=== PATIENT | male | born 1990 | race Caucasian/White ===

== ENCOUNTER 2017-12-05 05:21 | Emergency (ER) | payer SELFPAY ==
[~2017-12-05] VITALS: Ht 175.3 cm; Wt 74.8 kg
--- NOTE | 2017-12-05 05:41 | Emergency Room Report ---
History of Present Illness General Chief Complaint: Abdominal Pain Source: Patient Present Illness HPI Is a 26-year-old male with no past medical history. He presents with chief complaint abdominal pain started around midnight. Small amount of diarrhea. [place] nauseous but no vomiting. Pain is sharp and crampy. Episodic in nature. Comes in waves. At most severe around 9 out of 10. Never had this problem before. History of appendicitis when he was younger. Allergies: Coded Allergies: No Known Allergies (Unverified , 12/05/17) Patient History Past Medical History: see triage record, old chart reviewed Past Surgical History: appy Pertinent Family History: none Social History: Denies: smoking Immunizations: other Reviewed Nursing Documentation: PMH: Agreed; PSxH: Agreed Nursing Documentation-PMH Past Medical History: No History, Except For Review of Systems Eye: Denies: eye pain, blurred vision ENT: Denies: ear pain, nose congestion, throat swelling Respiratory: Denies: cough, shortness of breath Cardiovascular: Denies: chest pain, palpitations Gastrointestinal: Reports: abdominal pain, diarrhea; Denies: nausea, vomiting Musculoskeletal: Denies: back pain, joint pain Skin: Denies: rash Neurological: Denies: headache, numbness Endocrine: Denies: increased thirst, increased urine Hematologic/Lymphatic: Denies: easy bruising All Other Systems: negative except mentioned in HPI Physical Exam Vital Signs Date Time Temp Pulse Resp B/P (MAP) Pulse Ox O2 Delivery O2 Flow Rate FiO2 12/05/17 05:24 97.8 76 16 136/84 96 Room Air 97.9 vitals normal Sp02 EP Interpretation: reviewed, normal General Appearance: well appearing, no apparent distress, alert Head: normocephalic, atraumatic Eyes: bilateral eye PERRL, bilateral eye EOMI ENT: hearing grossly normal, normal pharynx Neck: full range of motion, supple, no meningismus Respiratory: chest non-tender, lungs clear, normal breath sounds Cardiovascular #1: regular rate, rhythm, no murmur Gastrointestinal: normal bowel sounds, no mass, no organomegaly, no bruit, non- distended, tenderness - right lower quadrant Musculoskeletal: back normal, gait/station normal, normal range of motion Psychiatric: mood/affect normal Skin: warm/dry Medical Decision Making Diagnostic Impression: Primary Impression: Abdominal pain Qualified Codes: R10.84 - Generalized abdominal pain ER Course Patient presents with generalized abdominal pain and small medical diarrhea. No evidence of obstruction. Labs unremarkable. No evidence of acute abdomen or infectious diarrhea. Most likely beginning of a gastroenteritis this been problem in a community the last couple weeks. We'll discharge home. Lab Results Impression labs unremarkable CT/MRI/US Diagnostic Results CT/MRI/US Diagnostic Results : Imaging Test Ordered: CT abdomen and pelvis Impression negative per radiologist Last Vital Signs Date Time Temp Pulse Resp B/P (MAP) Pulse Ox O2 Delivery O2 Flow Rate FiO2 12/05/17 05:24 97.8 76 16 136/84 96 Room Air 97.9 Status: improved Disposition: HOME, SELF-CARE Condition: Stable Scripts Ibuprofen* (MOTRIN*) 600 Mg Tablet 600 MG ORAL THREE TIMES A DAY, #30 TAB 0 Refills Prov: CARMEN SHABAZZ M.D. 12/05/17 Patient Instructions: Abdominal Pain, Adult Additional Instructions: Follow-up with your Dr. in 2-3 days if not better. Return if symptom worsen. Increase fluids. Advance diet as tolerated. CARMEN SHABAZZ M.D. December 05, 2017 05:41
[2017-12-05] MEDS ORDERED: Ketorolac 30mg Inj IV ONE (05:45)
[2017-12-05 06:11] LABS: BASOPHILS % (AUTO) 0.5 % (0.0-2.0); EOSINOPHILS % (AUTO) 0.3 % (0.0-3.0); HEMATOCRIT 46.8 % (42.0-52.0); HEMOGLOBIN 16.4 G/DL (14.2-18.0); LYMPHOCYTES % (AUTO) 14.1 % (20.0-45.0); MEAN CORPUSCULAR VOLUME 83 FL (80-99); MONOCYTES % (AUTO) 3.8 % (1.0-10.0); NEUTROPHILS % (AUTO) 81.3 % (45.0-75.0); PLATELET COUNT 218 K/UL (150-450); RED BLOOD COUNT 5.67 M/UL (4.70-6.10); RED CELL DISTRIBUTION WIDTH 10.4 % (11.6-14.8); WHITE BLOOD COUNT 10.3 K/UL (4.8-10.8)
[2017-12-05 06:21] LABS: ANION GAP 11 mmol/L (5-15); BLOOD UREA NITROGEN 19 mg/dL (7-18); CALCIUM 9.5 MG/DL (8.5-10.1); CARBON DIOXIDE 25 MMOL/L (21-32); CHLORIDE 103 MMOL/L (98-107); CREATININE 1.1 MG/DL (0.55-1.30); POTASSIUM 3.7 MMOL/L (3.5-5.1); SODIUM 139 MMOL/L (136-145)
[2017-12-05 06:25] LABS: ALANINE AMINOTRANSFERASE 50 U/L (12-78); ALBUMIN 4.9 G/DL (3.4-5.0); ALBUMIN/GLOBULIN RATIO 1.4 (1.0-2.7); ALKALINE PHOSPHATASE 83 U/L (46-116); ASPARTATE AMINO TRANSFERASE 40 U/L (15-37); BILIRUBIN,TOTAL 0.9 MG/DL (0.2-1.0)
[2017-12-05] MEDS ORDERED: IBUPROFEN600 MG ORAL (06:29)
[2017-12-05] MEDS ORDERED: Morphine Sulfate 4mg/ml Inj IVP ONE (06:30)
[2017-12-05 06:43] VITALS: BP 139/75
--- NOTE | 2017-12-05 06:50 | Diagnostic Imaging Report ---
EXAM: CT Abdomen and Pelvis Without Intravenous Contrast. CLINICAL HISTORY: Abdominal pain. TECHNIQUE: Axial computed tomography images of the abdomen and pelvis without intravenous contrast. CTDI is 13.2 mGy and DLP is 618 mGy-cm. One or more of the following dose reduction techniques were used: automated exposure control, adjustment of the mA and/or kV according to patient size, use of iterative reconstruction technique. COMPARISON: No relevant prior studies available. FINDINGS: Lower thorax: No acute findings. ABDOMEN: Liver: Unremarkable. Gallbladder and bile ducts: Unremarkable. No calcified stones. No ductal dilation. Pancreas: Unremarkable. No ductal dilation. Spleen: Unremarkable. No splenomegaly. Adrenals: Unremarkable. No mass. Kidneys and ureters: Unremarkable. No obstructing stones. No hydronephrosis. PELVIS: Bladder: Unremarkable. No stones. Reproductive: Unremarkable as visualized. Appendix: No findings to suggest acute appendicitis. ABDOMEN + PELVIS: Stomach and bowel: Dilated, fluid-filled loops of small bowel with fecalization of small bowel contents and a point of transition within the distal or terminal ileum. Findings are most consistent with a low-grade small bowel obstruction at this site. There is mild associated mesenteric edema. No definite bowel wall thickening though evaluation is limited by absence of enteric contrast. Peritoneum: Unremarkable. No significant loculated fluid collection. No free air. Lymph nodes: Unremarkable. No enlarged lymph nodes. Vasculature: Unremarkable. No aortic aneurysm. Bones: No acute fracture. IMPRESSION: Low grade distal small bowel obstruction, with point of transition within the distal or terminal ileum. Etiology of obstruction is unclear though it may be due to focal stricture or adhesion. No extrinsic mass effect or mass lesion is seen. Please correlate if patient has known inflammatory bowel disease such as Crohn's, in which case it would be more likely to be a stricture at this site. [employer] 12/05/17 06:55 Verify Receipt Verified receipt with SHAYY Duke in ER for Bill GARNICA on 12/05 06:55 (-07:00)
[2017-12-05] MEDS ORDERED: NKM (07:00)
--- NOTE | 2017-12-05 08:11 | Emergency Room Report ---
Physical Exam Vital Signs Date Time Temp Pulse Resp B/P (MAP) Pulse Ox O2 Delivery O2 Flow Rate FiO2 12/05/17 05:24 97.8 76 16 136/84 96 Room Air 97.9 Medical Decision Making Diagnostic Impression: Primary Impression: Abdominal pain Qualified Codes: R10.84 - Generalized abdominal pain Additional Impression: Bowel obstruction Qualified Codes: K56.51 - Intestinal adhesions [bands], with partial obstruction ER Course Hospital Course 26-year-old male presents to ED with abdominal pain Clinical course patient initially seen and evaluated by Dr Terrazas; please see his note for full history and physical Labs - no leukocytosis, Hb/Hct stable. electrolytes ok. CT abdomen and pelvis - SBO with transition point in RLQ Patient complains of nausea but no vomiting. States he has not had a bowel movement or flatus since pain started. I discussed findings with patient. I recommend admission. Patient discussed with his family states he would prefer to be discharged and will return if pain worsens. Understands the risks of leaving. Patient has competency to make his own decisions. Signed AMA form. I feel this is a highly complex case requiring extensive working including EKG/ Rhythm strip, Xray/CT/US, Blood/urine lab work, repeat exams while in ED, and administration of strong opiates/narcotics for pain control, admission to hospital or close patient follow up. Diagnosis - abdominal pain, bowel obstruction patient leaves AMA Labs Test 12/05/17 05:30 12/05/17 05:35 White Blood Count 10.3 K/UL (4.8-10.8) Red Blood Count 5.67 M/UL (4.70-6.10) Hemoglobin 16.4 G/DL (14.2-18.0) Hematocrit 46.8 % (42.0-52.0) Mean Corpuscular Volume 83 FL (80-99) Mean Corpuscular Hemoglobin 29.0 PG (27.0-31.0) Mean Corpuscular Hemoglobin Concent 35.1 G/DL (32.0-36.0) Red Cell Distribution Width 10.4 % (11.6-14.8) Platelet Count 218 K/UL (150-450) Mean Platelet Volume 8.0 FL (6.5-10.1) Neutrophils (%) (Auto) 81.3 % (45.0-75.0) Lymphocytes (%) (Auto) 14.1 % (20.0-45.0) Monocytes (%) (Auto) 3.8 % (1.0-10.0) Eosinophils (%) (Auto) 0.3 % (0.0-3.0) Basophils (%) (Auto) 0.5 % (0.0-2.0) Sodium Level 139 MMOL/L (136-145) Potassium Level 3.7 MMOL/L (3.5-5.1) Chloride Level 103 MMOL/L (98-107) Carbon Dioxide Level 25 MMOL/L (21-32) Anion Gap 11 mmol/L (5-15) Blood Urea Nitrogen 19 mg/dL (7-18) Creatinine 1.1 MG/DL (0.55-1.30) Estimat Glomerular Filtration Rate > 60 mL/min (>60) Glucose Level 95 MG/DL (74-106) Calcium Level 9.5 MG/DL (8.5-10.1) Total Bilirubin 0.9 MG/DL (0.2-1.0) Aspartate Amino Transf (AST/SGOT) 40 U/L (15-37) Alanine Aminotransferase (ALT/SGPT) 50 U/L (12-78) Alkaline Phosphatase 83 U/L (46-116) Total Protein 8.4 G/DL (6.4-8.2) Albumin 4.9 G/DL (3.4-5.0) Globulin 3.5 g/dL Albumin/Globulin Ratio 1.4 (1.0-2.7) Lipase 124 U/L (73-393) CT/MRI/US Diagnostic Results CT/MRI/US Diagnostic Results : Imaging Test Ordered: CT A/P Impression Low grade distal small bowel obstruction, with point of transition within the distal or terminal ileum. Etiology of obstruction is unclear though it may be due to focal stricture or adhesion. No extrinsic mass effect or mass lesion is seen. Please correlate if patient has known inflammatory bowel disease such as Crohn's, in which case it would be more likely to be a stricture at this site. Last Vital Signs Date Time Temp Pulse Resp B/P (MAP) Pulse Ox O2 Delivery O2 Flow Rate FiO2 12/05/17 06:59 97.0 12/05/17 06:43 97 14 139/75 99 Room Air Status: unchanged Disposition: AGAINST MEDICAL ADVICE Condition: Stable Scripts Ibuprofen* (MOTRIN*) 600 Mg Tablet 600 MG ORAL THREE TIMES A DAY, #30 TAB 0 Refills Prov: CARMEN TERRAZAS M.D. 12/05/17 Referrals: NOT CHOSEN [facility]/,REFERRING (PCP) Patient Instructions: Abdominal Pain, Adult Additional Instructions: Follow-up with your Dr. in 2-3 days if not better. Return if symptom worsen. Increase fluids. Advance diet as tolerated. Saul Khan MD December 05, 2017 08:11
[2017-12-05 08:15] VITALS: BP 141/71
== END 2017-12-05 08:15 | disposition left against medical advice (07) ==
LOC: EMR 05:43
DX: R10.84 Generalized abdominal pain (principal); K56.51 Intestinal adhesions [bands], with partial obstruction
CPT/HCPCS: 36415; 74176; 80053; 83690; 85025; 96360; 96374; 96375; 99284; J1885; J2270; J2405

== ENCOUNTER 2017-12-05 19:40 | Inpatient (IN) | payer SELFPAY ==
[~2017-12-05] VITALS: Ht 175.3 cm; Wt 74.8 kg
[~2017-12-05 19:40] MED LIST: IBUPROFEN600 MG ORAL; NKM
--- NOTE | 2017-12-05 19:56 | Emergency Room Report ---
History of Present Illness General Chief Complaint: Abdominal Pain Source: Patient, Medical Record Present Illness HPI The patient presents after signing out AGAINST MEDICAL ADVICE this morning. He was seen with right lower quadrant pain that began about 1 AM. It has been fairly constant but has periods where it gets significantly worse. At times it' s 2-3/10 but then gets up to eat to 9/10. When he initially presented he has a scant amount of yellow diarrhea. He's moved his bowels a couple times today but is not passing gas. He's vomited one time this afternoon which was the Pedialyte that he tried to keep down. Denies any fever fevers or chills. He is status post appendectomy and this feels similar to that. The evaluation this morning had essentially normal labs however a CAT scan ( which was initially read as negative) but was reread with sigmoid obstruction suggestive of possible inflammatory bowel disease or adhesion. This was discussed with the patient. He consulted with his father who is a chiropractor and advised him to sign out AMA. No fevers, chest pain, cough, rashes. There is some anxiety with the pain. No joint pain or headache. No dizziness when standing. No recent alcohol ingestion. 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 Nursing Documentation: PMH: Agreed; PSxH: Agreed Review of Systems All Other Systems: negative except mentioned in HPI Physical Exam Vital Signs Date Time Temp Pulse Resp B/P (MAP) Pulse Ox O2 Delivery O2 Flow Rate FiO2 12/05/17 19:47 97.8 73 20 146/98 98 Room Air 97.9 Sp02 EP Interpretation: reviewed, normal General Appearance: well appearing, alert, GCS 15, non-toxic, mild distress Head: normocephalic Eyes: bilateral eye normal inspection, bilateral eye PERRL ENT: moist mucus membranes Neck: supple Respiratory: lungs clear, normal breath sounds Cardiovascular #1: regular rate, rhythm Cardiovascular #2: 2+ radial (R) Gastrointestinal: normal inspection, normal bowel sounds, no mass, non- distended, no rebound, guarding - RLQ, tenderness Musculoskeletal: back normal, gait/station normal, normal range of motion Neurologic: alert, oriented x3, grossly normal Psychiatric: anxious Skin: normal inspection, warm/dry Medical Decision Making Diagnostic Impression: Primary Impression: Small bowel obstruction ER Course Patient has continued abdominal pain after signing out AGAINST MEDICAL ADVICE with a CAT scan suggestive of bowel obstruction. Differential includes bowel obstruction, inflammatory bowel disease amongst others. Needs reevaluation with labs, abdominal film. Patient will be treated with IV hydration and analgesia. Concern is that the obstruction is persistent and the patient is still vomiting. Most likely patient needs to be admitted to the hospital. Labs with min leukocytosis. Abd film with SBO. Improved with analgesia, still with some pain. No rebound. Min guarding. Patient discussed with Dr. Stephens and Dr. Boyer. Admit med, Dr. Boyer. (NG tube ordered by Dr. Terrazas. Poorly tolerated by patient.) Laboratory Tests Test 12/05/17 20:00 12/05/17 20:07 White Blood Count 10.6 K/UL (4.8-10.8) Red Blood Count 6.23 M/UL (4.70-6.10) H Hemoglobin 17.7 G/DL (14.2-18.0) Hematocrit 50.5 % (42.0-52.0) Mean Corpuscular Volume 81 FL (80-99) Mean Corpuscular Hemoglobin 28.5 PG (27.0-31.0) Mean Corpuscular Hemoglobin Concent 35.1 G/DL (32.0-36.0) Red Cell Distribution Width 10.3 % (11.6-14.8) L Platelet Count 216 K/UL (150-450) Mean Platelet Volume 7.9 FL (6.5-10.1) Neutrophils (%) (Auto) % (45.0-75.0) Lymphocytes (%) (Auto) % (20.0-45.0) Monocytes (%) (Auto) % (1.0-10.0) Eosinophils (%) (Auto) % (0.0-3.0) Basophils (%) (Auto) % (0.0-2.0) Differential Total Cells Counted 100 Neutrophils % (Manual) 88 % (45-75) H Lymphocytes % (Manual) 9 % (20-45) L Monocytes % (Manual) 1 % (1-10) Eosinophils % (Manual) 0 % (0-3) Basophils % (Manual) 0 % (0-2) Band Neutrophils 2 % (0-8) Platelet Estimate Adequate Platelet Morphology Normal Red Blood Cell Morphology Normal Prothrombin Time 11.4 SEC (9.30-11.50) Prothrombin Time INR 1.1 (0.9-1.1) PTT 29 SEC (23-33) Sodium Level 139 MMOL/L (136-145) Potassium Level 4.0 MMOL/L (3.5-5.1) Chloride Level 103 MMOL/L (98-107) Carbon Dioxide Level 25 MMOL/L (21-32) Anion Gap 11 mmol/L (5-15) Blood Urea Nitrogen 17 mg/dL (7-18) Creatinine 1.2 MG/DL (0.55-1.30) Estimate Glomerular Filtration Rate > 60 mL/min (>60) Glucose Level 102 MG/DL (74-106) Calcium Level 9.6 MG/DL (8.5-10.1) Total Bilirubin 1.3 MG/DL (0.2-1.0) H Direct Bilirubin 0.3 MG/DL (0.0-0.3) Aspartate Amino Transferase (AST) 34 U/L (15-37) Alanine Aminotransferase (ALT) 47 U/L (12-78) Alkaline Phosphatase 68 U/L (46-116) Total Creatine Kinase 453 U/L (26-308) H Total Protein 7.9 G/DL (6.4-8.2) Albumin 4.6 G/DL (3.4-5.0) Globulin 3.3 g/dL Albumin/Globulin Ratio 1.4 (1.0-2.7) Lipase 111 U/L (73-393) Urine Color Kina Urine Appearance Slightly cloudy Urine pH 6.5 (4.5-8.0) Urine Specific [place] 1.015 (1.005-1.035) Urine Protein 1+ (NEGATIVE) H Urine Glucose (UA) Negative (NEGATIVE) Urine Ketones 4+ (NEGATIVE) H Urine Occult Blood 1+ (NEGATIVE) H Urine Nitrite Negative (NEGATIVE) Urine Bilirubin Negative (NEGATIVE) Urine Ictotest Negative Urine Urobilinogen Normal MG/DL (0.0-1.0) Urine Leukocyte Esterase 1+ (NEGATIVE) H Urine RBC 0 /HPF (0 - 0) Urine WBC 5-10 /HPF (0 - 0) H Urine Squamous Epithelial Cells Occasional /LPF Urine Bacteria Few /HPF (NONE) Urine Mucus Few /LPF (NONE/OCC) H Other X-Ray Diagnostic Results Other X-Ray Diagnostic Results : X-Ray ordered: abd # of Views/Limited Vs Complete: 1 View Indication: Pain EP Interpretation: Yes Interpretation: other - suggestive of SBO, no gas in rectum, no masses Impression: Other Electronically Signed by: Benji Canales MD Last Vital Signs Date Time Temp Pulse Resp B/P (MAP) Pulse Ox O2 Delivery O2 Flow Rate FiO2 12/05/17 23:17 97.9 20 146/98 98 Room Air 97.9 12/05/17 19:47 73 Status: improved Disposition: ADMITTED INPATIENT Condition: Serious Benji Canales M.D. December 05, 2017 19:56
[2017-12-05] MEDS ORDERED: Morphine Sulfate 4mg/ml Inj IVP ONE ×2 (20:15→22:30)
[2017-12-05 20:24] LABS: HEMATOCRIT 50.5 % (42.0-52.0); HEMOGLOBIN 17.7 G/DL (14.2-18.0); MEAN CORPUSCULAR VOLUME 81 FL (80-99); PLATELET COUNT 216 K/UL (150-450); RED BLOOD COUNT 6.23 M/UL (4.70-6.10); RED CELL DISTRIBUTION WIDTH 10.3 % (11.6-14.8); WHITE BLOOD COUNT 10.6 K/UL (4.8-10.8)
[2017-12-05 20:29] LABS: APPEARANCE,URINE SLIGHTLY CLOUDY; BILIRUBIN, URINE NEGATIVE (NEGATIVE); COLOR,URINE AMBER; GLUCOSE, URINE (UA) NEGATIVE (NEGATIVE); KETONES,URINE 4+ (NEGATIVE); LEUKOCYTE ESTERASE ,URINE 1+ (NEGATIVE); NITRITE,URINE NEGATIVE (NEGATIVE); PH,URINE 6.5 (4.5-8.0); PROTEIN,URINE 1+ (NEGATIVE); UROBILINOGEN,URINE NORMAL MG/DL (0.0-1.0)
[2017-12-05 20:36] LABS: ANION GAP 11 mmol/L (5-15); BLOOD UREA NITROGEN 17 mg/dL (7-18); CALCIUM 9.6 MG/DL (8.5-10.1); CARBON DIOXIDE 25 MMOL/L (21-32); CHLORIDE 103 MMOL/L (98-107); CREATININE 1.2 MG/DL (0.55-1.30); SODIUM 139 MMOL/L (136-145)
[2017-12-05 20:40] LABS: INR 1.1 (0.9-1.1)
[2017-12-05 20:46] LABS: ALANINE AMINOTRANSFERASE 47 U/L (12-78); ALBUMIN 4.6 G/DL (3.4-5.0); ALBUMIN/GLOBULIN RATIO 1.4 (1.0-2.7); ALKALINE PHOSPHATASE 68 U/L (46-116); ASPARTATE AMINO TRANSFERASE 34 U/L (15-37); BILIRUBIN,TOTAL 1.3 MG/DL (0.2-1.0); CREATINE KINASE 453 U/L (26-308)
[2017-12-05 20:53] LABS: BILIRUBIN,DIRECT 0.3 MG/DL (0.0-0.3)
--- NOTE | 2017-12-05 20:59 | Diagnostic Imaging Report ---
EXAM: XR Abdomen, 2 Views CLINICAL HISTORY: ABD PAIN TECHNIQUE: Frontal view of the abdomen/pelvis with upright view of the abdomen. COMPARISON: CT 12/05/2017 0549 FINDINGS: Intraperitoneal space: No pneumatosis or pneumoperitoneum. Gastrointestinal tract: Dilated gas-filled loops of small bowel in the left abdomen. Paucity of bowel gas in the right and lower abdomen. Bones/joints: Unremarkable. IMPRESSION: 1. Dilated gas-filled loops of small bowel in the left abdomen. 2. No pneumatosis or pneumoperitoneum.
[2017-12-05 23:17] VITALS: BP 146/98
[2017-12-05] MEDS ORDERED: D5 1/2NS 1,000 ML IV SCH (23:41)
[2017-12-05] MEDS ORDERED: Promethazine HCl 25 MG in NS 55 ML IV PRN (23:45)
[2017-12-05] MEDS ORDERED: Mylanta II UD 30ml ORAL PRN (23:45)
[2017-12-05] MEDS ORDERED: Miralax 17gm pkt ORAL PRN (23:45)
[2017-12-05] MEDS ORDERED: Promethazine HCl 12.5 MG in NS 55 ML IV PRN (23:45)
[2017-12-05] MEDS ORDERED: Nitroglycerin Subl 0.4mg tab SL PRN (23:45)
[2017-12-05] MEDS ORDERED: Metoclopramide 10mg/2ml Inj IVP PRN (23:45)
[2017-12-05] MEDS ORDERED: LORazepam Inj 2mg/ml 1ml IV PRN (23:45)
[2017-12-06] MEDS: Heparin 5000 units/ml inj SUBQ SCH (00:30)
[2017-12-06] MEDS: Piperacillin/Tazobactam 3.375 GM in NS 110 ML IVPB SCH ×4 (01:57→21:13)
[2017-12-06 04:00] VITALS: BP 124/61
[2017-12-06] MEDS: D5 1/2NS 1,000 ML IV SCH ×2 (05:40→21:11)
[2017-12-06 07:18] LABS: HEMATOCRIT 41.4 % (42.0-52.0); HEMOGLOBIN 14.7 G/DL (14.2-18.0); MEAN CORPUSCULAR VOLUME 82 FL (80-99); PLATELET COUNT 191 K/UL (150-450); RED BLOOD COUNT 5.03 M/UL (4.70-6.10); RED CELL DISTRIBUTION WIDTH 10.5 % (11.6-14.8); WHITE BLOOD COUNT 8.8 K/UL (4.8-10.8)
[2017-12-06 07:47] LABS: ALANINE AMINOTRANSFERASE 32 U/L (12-78); ALBUMIN 3.3 G/DL (3.4-5.0); ALBUMIN/GLOBULIN RATIO 1.2 (1.0-2.7); ALKALINE PHOSPHATASE 50 U/L (46-116); AMYLASE 64 U/L (25-115); ANION GAP 6 mmol/L (5-15); ASPARTATE AMINO TRANSFERASE 24 U/L (15-37); BLOOD UREA NITROGEN 15 mg/dL (7-18); CALCIUM 8.1 MG/DL (8.5-10.1); CARBON DIOXIDE 29 MMOL/L (21-32); CHLORIDE 107 MMOL/L (98-107); CREATININE 1.3 MG/DL (0.55-1.30); POTASSIUM 3.7 MMOL/L (3.5-5.1); SODIUM 141 MMOL/L (136-145)
[2017-12-06 08:22] VITALS: BP 111/60
--- NOTE | 2017-12-06 11:23 | General Progress Note ---
Progress Note Progress Note Surgery: 26M hx of lap appy many years ago presented with acute abdominal pain, nausea, emesis. CT demonstrated likely partial SBO with transition point likely adhesions. admitted for care and management. NG tube placed, npo, fluid resuscitation. since admission pain has resolved. no n/v/f/c. currently passing flatus as of late last night/ early this AM. sbo resolving with conservative management. NG tube removed at bedside this AM -NPO -IV fluids -plan to start clears tomorrow AM. if does well can potentially consider d/c once return of bowel fucntion thank you for this consultation. will follow with recs. Solo Stephens December 06, 2017 11:23
[2017-12-06] MEDS ORDERED: 1/2 NS 1000ml IV ONE (11:36)
[2017-12-06] MEDS ORDERED: NS 275ml ONE (11:36)
[2017-12-06] MEDS ORDERED: Tubing IV Secondary IV ONE (11:36)
[2017-12-06 12:05] VITALS: BP 110/58
--- NOTE | 2017-12-06 15:14 | Diagnostic Imaging Report ---
EXAM: US Abdomen Complete CLINICAL HISTORY: ABD PAIN TECHNIQUE: Real-time ultrasound of the abdomen (complete) with image documentation. COMPARISON: CT of the abdomen and pelvis dated 12/05/17. FINDINGS: Liver: Trace perihepatic fluid. Liver diameter of 15.4 cm. No intrahepatic bile duct dilation. Gallbladder: Unremarkable. No gallstones. Common bile duct: Common bile duct diameter 1.6 mm. No stones. No dilation. Pancreas: Unremarkable as visualized. Pancreatic body and tail are obscured by bowel gas. Kidneys: Right kidney measures 10.8 x 5.6 x 4.8 cm. Left kidney measures 11.7 x 6.6 x 6.5 cm. No stones. No hydronephrosis. Spleen: Spleen measures 11.1 x 4.3 cm. Aorta: Visualized portions of the abdominal aorta and IVC appear unremarkable. Inferior vena cava: See above. IMPRESSION: Trace perihepatic fluid.
--- NOTE | 2017-12-06 15:59 | History & Physical ---
History and Physical History & Physicial Dictated for Int Med-Dr Boyer no. [id number]. Ham Quiñones MD December 06, 2017 15:59
[2017-12-06 16:11] VITALS: BP 118/70
--- NOTE | 2017-12-06 19:00 | History and Physical Report ---
DATE OF ADMISSION: 12/05/2017 CHIEF COMPLAINT: The patient is a 26-year-old white male, who presents with a chief complaint of abdominal pain. HISTORY OF PRESENT ILLNESS: Began on Monday, December 04, 2017. The patient began to experience abdominal pain. The patient states the pain was localized around the umbilicus. The patient states it was "throbbing." The patient states the pain alternates from 2 to 10 in intensity. The patient presented initially to [facility] emergency room on Tuesday, December 05, 2017 in the morning. The patient left against medical advice. The patient then returned Thursday evening. A CT scan of the abdomen revealed probable partial small bowel obstruction. The patient is admitted for abdominal pain and probable small bowel obstruction. PAST MEDICAL HISTORY: The patient denies. PAST SURGICAL HISTORY: Significant for laparoscopic appendectomy at age 13 or 14. CURRENT MEDICATIONS: The patient denies. ALLERGIES: No known drug allergies. 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 The patient admits to occasional tobacco use. The patient admits to occasional alcohol use. The patient denies drug abuse. REVIEW OF SYSTEMS: CONSTITUTIONAL: The patient denies weight loss or weight gain. The patient denies fevers or chills. HEENT: The patient denies ear or throat pain. headache. CARDIOVASCULAR: The patient denies palpitations or chest pain. CHEST: The patient denies wheeze or shortness of breath. ABDOMEN: The patient complains of abdominal pain as above. The patient denies nausea, vomiting, diarrhea, or constipation. GENITOURINARY: The patient denies dysuria or increased frequency of urination. NEUROMUSCULAR: The patient denies seizures or generalized weakness. PHYSICAL EXAMINATION: VITAL SIGNS: Temperature 97.8, respirations 20, pulse 73, and blood pressure 146/98. GENERAL: The patient is a well-developed and well-nourished white male, in no apparent distress. HEENT: Pupils equal and responsive to light and accommodation. Extraocular movements are intact. NECK: Supple without lymphadenopathy. CHEST: Lungs are clear to auscultation bilaterally without wheezes or rales. CARDIOVASCULAR: Regular rhythm and rate. S1 and S2 are normal without murmurs, rubs, or gallops. ABDOMEN: Soft and nondistended with absent bowel sounds. There is pain to palpation in all four quadrants. There is no rebound or guarding noted. EXTREMITIES: Negative for clubbing, cyanosis, or edema. RECTAL/GENITAL: Refused. NEUROLOGIC: Cranial nerves II to XII are grossly intact without focal deficits. Motor strength is 5/5 bilaterally. Deep tendon reflexes are 2+ plantar. LABORATORY STUDIES: WBC 10.6, hemoglobin 17.7, hematocrit 50.5, and platelets 216,000. Sodium 139, potassium 4.0, chloride 103, CO2 25, BUN 17, creatinine 1.2, and glucose 102. An x-ray of the abdomen showed dilated loops of small bowel consistent with small bowel obstruction. A CT scan of the abdomen is pending. ASSESSMENT: This is a 26-year-old white male. 1. Abdominal pain. 2. Probable small bowel obstruction. TREATMENT: Abdominal pain/small bowel obstruction. A General Surgery consultation was obtained with Dr. Stephens. The patient had an NG tube in place, however, this has been discontinued. The patient is tolerating ice chips. We will follow recommendations of Surgery. The patient has been started empirically on intravenous antibiotics including Zosyn. Ham Quiñones M.D. DR: SUZI JOB#: [id number] CC:
[2017-12-06 20:00] VITALS: BP 111/59
--- NOTE | 2017-12-06 20:40 | Consultation ---
History of Present Illness General Chief Complaint: Abdominal Pain Present Illness Allergies: Coded Allergies: No Known Allergies (Unverified , 12/05/17) Medication History Scheduled Ibuprofen* (Motrin*), 600 MG ORAL THREE TIMES A DAY No Known Medications* (NKM - No Known Medications*), 0 ., (Reported) Patient History Healthcare decision maker Resuscitation status Full Code Advanced Directive on File No Physical Exam Last 24 Hour Vital Signs Date Time Temp Pulse Resp B/P (MAP) Pulse Ox O2 Delivery O2 Flow Rate FiO2 12/06/17 20:00 97.5 45 16 111/59 97 97.5 12/06/17 16:11 60 20 118/70 97 12/06/17 12:05 97.3 50 20 110/58 99 97.3 12/06/17 08:22 97.7 52 20 111/60 98 97.7 12/06/17 04:00 98.1 60 19 124/61 98 98.1 12/05/17 23:17 97.9 20 146/98 98 Room Air 97.9 12/05/17 23:17 97.8 20 146/98 98 Room Air 97.9 Intake and Output 12/05/17 12/06/17 19:00 07:00 Intake Total 2660.0 ml Balance 2660.0 ml Intake Oral 0 ml IV Total 2660.0 ml # Voids 1 Laboratory Tests Test 12/06/17 06:25 12/06/17 09:00 White Blood Count 8.8 K/UL (4.8-10.8) Red Blood Count 5.03 M/UL (4.70-6.10) Hemoglobin 14.7 G/DL (14.2-18.0) Hematocrit 41.4 % (42.0-52.0) L Mean Corpuscular Volume 82 FL (80-99) Mean Corpuscular Hemoglobin 29.3 PG (27.0-31.0) Mean Corpuscular Hemoglobin Concent 35.5 G/DL (32.0-36.0) Red Cell Distribution Width 10.5 % (11.6-14.8) L Platelet Count 191 K/UL (150-450) Mean Platelet Volume 7.7 FL (6.5-10.1) Neutrophils (%) (Auto) % (45.0-75.0) Lymphocytes (%) (Auto) % (20.0-45.0) Monocytes (%) (Auto) % (1.0-10.0) Eosinophils (%) (Auto) % (0.0-3.0) Basophils (%) (Auto) % (0.0-2.0) Differential Total Cells Counted 100 Neutrophils % (Manual) 67 % (45-75) Lymphocytes % (Manual) 25 % (20-45) Monocytes % (Manual) 8 % (1-10) Eosinophils % (Manual) 0 % (0-3) Basophils % (Manual) 0 % (0-2) Band Neutrophils 0 % (0-8) Platelet Estimate Adequate Platelet Morphology Normal Red Blood Cell Morphology Normal Activated Partial Thromboplast Time 29 SEC (23-33) Sodium Level 141 MMOL/L (136-145) Potassium Level 3.7 MMOL/L (3.5-5.1) Chloride Level 107 MMOL/L (98-107) Carbon Dioxide Level 29 MMOL/L (21-32) Anion Gap 6 mmol/L (5-15) Blood Urea Nitrogen 15 mg/dL (7-18) Creatinine 1.3 MG/DL (0.55-1.30) Estimat Glomerular Filtration Rate > 60 mL/min (>60) Glucose Level 103 MG/DL (74-106) Calcium Level 8.1 MG/DL (8.5-10.1) L Total Bilirubin 1.0 MG/DL (0.2-1.0) Aspartate Amino Transf (AST/SGOT) 24 U/L (15-37) Alanine Aminotransferase (ALT/SGPT) 32 U/L (12-78) Alkaline Phosphatase 50 U/L (46-116) Total Protein 6.0 G/DL (6.4-8.2) L Albumin 3.3 G/DL (3.4-5.0) L Globulin 2.7 g/dL Albumin/Globulin Ratio 1.2 (1.0-2.7) Amylase Level 64 U/L (25-115) Lipase 126 U/L (73-393) Lactic Acid Level 0.80 mmol/L (0.66-2.22) Height (Feet): 5 Height (Inches): 9.00 Weight (Pounds): 165 Medications Current Medications Medications (Trade) Dose Ordered Sig/Juan Route PRN Reason Start Time Stop Time Status Last Admin Dose Admin Dextrose (Dextrose 50%) STAT PRN IV Hypoglycemia 12/05/17 23:45 01/04/18 23:44 Dextrose/Sodium Chloride 1,000 ml @ 125 mls/hr Q8H IV 12/06/17 23:41 01/05/18 23:40 12/06/17 05:40 Heparin Sodium (Porcine) (Heparin 5000 units/ml) 5,000 units EVERY 12 HOURS SUBQ 12/06/17 23:56 01/05/18 23:55 Lorazepam (Ativan 2mg/ml 1ml) 1 mg EVERY 4 HOURS PRN IV agitation 12/05/17 23:45 12/12/17 23:44 Ondansetron HCl (Zofran) 4 mg Q6H PRN IVP Nausea & Vomiting 12/05/17 23:45 01/04/18 23:44 Piperacillin Sod/ Tazobactam Sod 3.375 gm/Sodium Chloride 110 ml @ 27.5 mls/hr EVERY 8 HOURS IVPB 12/06/17 01:00 12/11/17 00:59 12/06/17 15:33 Temazepam (Restoril) 15 mg HSPRN PRN ORAL Insomnia 12/05/17 23:45 12/12/17 23:44 Jean Claude Santos MD December 06, 2017 20:40
[2017-12-07] VITALS: BP 121/71
[2017-12-07 04:00] VITALS: BP 118/69
[2017-12-07] MEDS: D5 1/2NS 1,000 ML IV SCH (05:52)
[2017-12-07] MEDS: Piperacillin/Tazobactam 3.375 GM in NS 110 ML IVPB SCH (05:54)
[2017-12-07 08:00] VITALS: BP 119/67
[2017-12-07 08:16] LABS: BASOPHILS % (AUTO) 0.8 % (0.0-2.0); EOSINOPHILS % (AUTO) 2.3 % (0.0-3.0); HEMATOCRIT 42.6 % (42.0-52.0); LYMPHOCYTES % (AUTO) 28.6 % (20.0-45.0); MEAN CORPUSCULAR VOLUME 83 FL (80-99); MONOCYTES % (AUTO) 7.4 % (1.0-10.0); NEUTROPHILS % (AUTO) 60.8 % (45.0-75.0); PLATELET COUNT 156 K/UL (150-450); RED BLOOD COUNT 5.14 M/UL (4.70-6.10); RED CELL DISTRIBUTION WIDTH 10.2 % (11.6-14.8); WHITE BLOOD COUNT 4.5 K/UL (4.8-10.8)
[2017-12-07 08:19] LABS: ANION GAP 4 mmol/L (5-15); BLOOD UREA NITROGEN 12 mg/dL (7-18); CALCIUM 8.5 MG/DL (8.5-10.1); CARBON DIOXIDE 30 MMOL/L (21-32); CHLORIDE 106 MMOL/L (98-107); CREATININE 1.3 MG/DL (0.55-1.30); POTASSIUM 3.9 MMOL/L (3.5-5.1); SODIUM 140 MMOL/L (136-145)
[2017-12-07] MEDS: Heparin 5000 units/ml inj SUBQ SCH (09:00)
[2017-12-07 12:00] VITALS: BP 114/58
--- NOTE | 2017-12-07 12:10 | General Surgery Progress Note ---
General Surgery-Progress Note Subjective Symptoms: improved, pain absent, tolerating diet, passing flatus, BM Objective Last 24 Hour Vital Signs Date Time Temp Pulse Resp B/P (MAP) Pulse Ox O2 Delivery O2 Flow Rate FiO2 12/07/17 08:00 97.4 60 19 119/67 98 97.4 12/07/17 04:00 97.8 53 18 118/69 98 97.8 12/07/17 00:00 97.9 51 18 121/71 98 97.9 12/06/17 20:00 97.5 45 16 111/59 97 97.5 12/06/17 16:11 60 20 118/70 97 I&O Intake and Output 12/06/17 12/07/17 19:00 07:00 Intake Total 110.0 ml 1287.5 ml Output Total 1000 ml Balance 110.0 ml 287.5 ml Intake Oral 275 ml IV Total 110.0 ml 1012.5 ml Output Urine Total 1000 ml # Voids 3 Cardiovascular: RSR Respiratory: clear Abdomen: soft, flat, non-tender, present bowel sounds Extremities: no edema, no tenderness Laboratory Tests Test 12/07/17 07:45 White Blood Count 4.5 K/UL (4.8-10.8) L Red Blood Count 5.14 M/UL (4.70-6.10) Hemoglobin 15.0 G/DL (14.2-18.0) Hematocrit 42.6 % (42.0-52.0) Mean Corpuscular Volume 83 FL (80-99) Mean Corpuscular Hemoglobin 29.1 PG (27.0-31.0) Mean Corpuscular Hemoglobin Concent 35.1 G/DL (32.0-36.0) Red Cell Distribution Width 10.2 % (11.6-14.8) L Platelet Count 156 K/UL (150-450) Mean Platelet Volume 7.9 FL (6.5-10.1) Neutrophils (%) (Auto) 60.8 % (45.0-75.0) Lymphocytes (%) (Auto) 28.6 % (20.0-45.0) Monocytes (%) (Auto) 7.4 % (1.0-10.0) Eosinophils (%) (Auto) 2.3 % (0.0-3.0) Basophils (%) (Auto) 0.8 % (0.0-2.0) Sodium Level 140 MMOL/L (136-145) Potassium Level 3.9 MMOL/L (3.5-5.1) Chloride Level 106 MMOL/L (98-107) Carbon Dioxide Level 30 MMOL/L (21-32) Anion Gap 4 mmol/L (5-15) L Blood Urea Nitrogen 12 mg/dL (7-18) Creatinine 1.3 MG/DL (0.55-1.30) Estimat Glomerular Filtration Rate > 60 mL/min (>60) Glucose Level 86 MG/DL (74-106) Calcium Level 8.5 MG/DL (8.5-10.1) Plan Problems: (1) Small bowel obstruction Assessment & Plan: 26M SBO likely secondary to adhesive disease from prior appy. since resolved. exam benign. passing flatus and BM. tolerating diet. -d/c home today -clear liquids, will slowly advance at home over the next few days -follow up with me or PCP in 1-2 weeks. thank you Solo Stephens December 07, 2017 12:10
--- NOTE | 2017-12-07 12:13 | Discharge Instructions ---
Discharge Instructions Discharge Instructions Follow up with: PCP or Dr. Stephens in 1-2 weeks. Call MD/Return to Hospital if: any issues Diet: clear liquid, other - advance diet over next few days at home. Resume Normal Activity?: Yes Activity: resume normal activities For Surgical Patients May shower: Yes For Congestive Heart Failure Reminder Report to your physician any weight gain of 5 pounds or more in one week. Solo Stephens December 07, 2017 12:13
--- NOTE | 2017-12-08 08:27 | Discharge Summary ---
Discharge Summary Discharge Summary _ DATE OF ADMISSION: 12/05/2017 DATE OF DISCHARGE: 12/07/2017 REASON FOR ADMISSION: 26 years old male without significant past medical history, except laparoscopic appendectomy at age 12 or 13,presented to emergency department with chief complaint of right lower quadrant abdominal pain. Patient initially signed AGAINST MEDICAL ADVICE earlier that day, but came back due to severe pain. Patient reported nausea and emesis , but denied fever and chills. Afebrile, WBC 10.6, stable hemoglobin and hematocrit, stable renal parameters, electrolytes, liver enzymes. CT scan of abdomen and pelvis revealed low grade distal small bowel obstruction with point of transition within the distal or terminal ileum, likely due to a focal stricture or adhesion . Abdominal x-ray revealed dilated gas-filled loops of small bowel in the left abdomen. No pneumatosis or pneumoperitoneum noted. Patient was admitted for abdominal pain , small bowel obstruction. CONSULTANTS: pulmonary Dr. Santos surgery Dr. Stephens [facility] COURSE: Patient was admitted to medical surgical floor. Patient initially kept nothing by mouth. Surgeon seen and evaluated the patient urgently. Patient started on conservative medical management initially. NG tube placed to suction. Pain management provided, and pain was controlled. Antiemetics provided as needed. Patient started on empiric antibiotics . Abdominal ultrasound was unremarkable. Small bowel obstruction was resolving with conservative management. Patient started to pass flatus later that night. NG tube was discontinued in the morning. Patient started on clear liquid diet. Bowel function returned. Patient was stable for discharge home. Discharge instructions provided by surgeon. Outpatient follow-up with surgeon in 1-2 weeks as advised FINAL DIAGNOSES: Small bowel obstruction Abdominal pain ( due to above) DISCHARGE MEDICATIONS: See Medication Reconciliation list. DISCHARGE INSTRUCTIONS: Patient was discharged home. Patient to follow-up with a surgeon in 1-2 weeks. Patient was advised to advance diet over the next few days at home as tolerated and resume normal activity. I have been assigned to dictate discharge summary for this account. I was not involved in the patient's management. Montse Camacho NP December 08, 2017 08:27
== END 2017-12-07 13:25 | disposition home or self-care (01) | DRG 390 ==
LOC: EMR 20:13 → 4W 20:55 → EDBEDREQ 22:24
DX: K56.51 Intestinal adhesions [bands], with partial obstruction (principal); Z72.0 Tobacco use
CPT/HCPCS: 36415; 74018; 76700; 80048; 80053; 81003; 82150; 82248; 82550; 83605; 83690; 85007; 85025; 85610; 85730; 86850; 86900; 86901; 99285; J2405